=== PATIENT | female | born 1970 ===

== ENCOUNTER 2020-11-09 11:17 | Outpatient (CLI) | payer OTHER ==
--- NOTE | 2020-11-09 12:18 | Ultrasound Report ---
PROCEDURE: Abdomen Complete INDICATIONS: HEPATITIS B TECHNIQUE: Real-time scanning was performed of the abdominal and retroperitoneal organs, with image documentatio n. COMPARISON: None. FINDINGS: Liver: Liver is normal in size and demonstrates a mildly coarsened echotexture. A cyst can be seen o n the right inferiorly measuring up to 7 mm. Gallbladder: No gallstones or significant sludge can be seen. The gallbladder wall does not appear th ickened. There is no specific pericholecystic fluid. The sonographic Oconnor's sign is negative. Biliary ducts: Intrahepatic bile ducts are non-dilated. Extrahepatic bile duct caliber measures 4 m m. Normal is 6-7 mm or less in diameter, or 10 mm or less post-cholecystectomy. Pancreas: Visualized portions of the pancreas are sonographically normal. Spleen: Spleen is normal in size and homogeneous in echotexture. Kidneys: Kidneys are normal in size and echotexture. Right kidney measures 10.4 cm long; left kidne y measures 11.5 cm long. No hydronephrosis or nephrolithiasis. No solid masses. Aorta: Visualized aorta is normal in caliber at less than 3 cm. Iliacs: Proximal common iliac arteries are normal in caliber at less than 2.5 cm. IVC: Intrahepatic inferior vena cava is patent. Miscellaneous: No free abdominal fluid. IMPRESSION: Study within normal limits, with incidental note made of a 7 mm right liver cyst. Reviewed by: Branden Pierson MD on 11/09/2020 11:17 AM MARVA Approved by: Branden Pierson MD on 11/09/2020 11:17 AM AKMICHAEL Station ID: [id number]
== END 2020-11-09 11:18 | disposition home or self-care (01) ==
LOC: DI 11:17
PROVIDERS: ATTEND Physician Assistant
DX: B19.10 Unspecified viral hepatitis B without hepatic coma (principal)

== ENCOUNTER 2021-06-04 07:21 | Outpatient (CLI) | payer OTHER ==
--- NOTE | 2021-06-04 16:33 | Ultrasound Report ---
PROCEDURE: Abdomen Limited INDICATIONS: HEPATITIS B TECHNIQUE: Real-time scanning was performed of the abdominal and retroperitoneal organs, with image documentatio n. COMPARISON: Abdomen ultrasound 11/09/2020. FINDINGS: Liver: Liver is normal in size and heterogeneous in echotexture. Focus of decreased echogenicity is noted within the right lobe measuring 7 mm suggestive of simple cyst, unchanged Gallbladder: M trace no stones. Wall thickness is within normal limits measuring 1.2 mm. Biliary ducts: Intrahepatic bile ducts are non-dilated. Extrahepatic bile duct caliber measures 4.7 mm. Normal is 6-7 mm or less in diameter, or 10 mm or less post-cholecystectomy. Pancreas: Visualized portions of the pancreas are sonographically normal. Kidneys: Kidneys are normal in size and echotexture. Right kidney measures 10.6 cm long No hydrone phrosis or nephrolithiasis. No solid masses. IMPRESSION: Coarsened appearance of the liver with simple cyst. Otherwise, unremarkable. Reviewed by: Margarita Brady MD on 06/04/2021 4:32 PM PST Approved by: Margarita Brady MD on 06/04/2021 4:32 PM PST Station ID: [id number]
== END 2021-06-04 07:22 | disposition home or self-care (01) ==
LOC: DI 07:21
PROVIDERS: ATTEND Physician Assistant
DX: K76.89 Other specified diseases of liver (principal); B19.10 Unspecified viral hepatitis B without hepatic coma

== ENCOUNTER 2022-01-04 13:21 | Outpatient (CLI) | payer OTHER ==
--- NOTE | 2022-01-14 08:59 | Mammography Report ---
BILATERAL DIGITAL SCREENING MAMMOGRAM 3D/2D: 01/04/2022 CLINICAL: Routine screening. Comparison is made to exams dated: 11/07/2020 mammogram - [facility], 09/15/2017 mammogram - [facility], [place], and 04/28/2015 mammogram - [facility]. The tissue of both breasts is heteroge neously dense. This may lower the sensitivity of mammography. No significant masses, calcifications, or other findings are seen in either breast. There has been no significant interval change. IMPRESSION: NEGATIVE There is no mammographic evidence of malignancy. A 1 year screening mammogram is recommended. Based on the Tyrer Cuzick model (a risk assessment model) the patients lifetime risk is 12.2% and he r 10 year risk is 3.2%. According to the ACR, ACS, and NCCN guidelines, an annual breast MRI exam marina ng with mammogram is recommended if the patients lifetime risk is 20% or greater. This exam was interpreted at Station ID: [id number]. NOTE: For mammograms, a report in lay terms will be sent to the patient. Approximately 15% of breast malignancies will not be visualized mammographically. In the management of a palpable breast mass, a negative mammogram must not discourage biopsy of a clinically suspicious lesion. Electronically Signed By: Nicola Pedroza acr/penrad:01/13/2022 12:06:32 ACR BI-RADS Category 1: Negative 3341F PARENCHYMAL PATTERN: (D) - The breast(s) demonstrate(s) heterogeneously dense fibroglandular parsaqiby ma. BI-RADS CATEGORY: (1) - 1 RECOMMENDATION: (ANNUAL) - Recommend routine annual screening mammography. [id number] 1 year screening LATERALITY: (B)
== END 2022-01-04 13:22 | disposition home or self-care (01) ==
LOC: DI.N 13:21
PROVIDERS: ATTEND Physician Assistant
DX: Z12.31 Encounter for screening mammogram for malignant neoplasm of breast (principal)

== ENCOUNTER 2022-01-22 11:13 | Outpatient (CLI) | payer OTHER ==
--- NOTE | 2022-01-22 20:52 | Ultrasound Report ---
PROCEDURE: Abdomen Limited INDICATIONS: HEPATITIS B TECHNIQUE: Real-time focused scanning was performed of the abdomen, with image documentation. COMPARISON: None FINDINGS: The liver measures 12.5 cm. Hepatic echotexture is heterogenous. A previously seen right hepatic cyst is not visualized. Main portal vein flow is hepatopedal. Gallbladder is within normal limits. No wall thickening or pericholecystic fluid. The biliary tree is within normal limits. Common hepatic duct measures 1.9 mm. Common bile duct measu res 2.9 mm. Pancreas is not well-seen due to overlying bowel gas. Kidneys: The right kidney measures 9.2 cm in length. Cortical thickness is 1.0 cm. No solid or cystic masses. IMPRESSION: *Normal renal ultrasound. *No liver masses. Reviewed by: Nicola Pedroza on 01/22/2022 7:51 PM MARVA Approved by: Nicola Pedroza on 01/22/2022 7:51 PM MARVA Station ID: [id number]
== END 2022-01-22 11:14 | disposition home or self-care (01) ==
LOC: DI 11:13
PROVIDERS: ATTEND Physician Assistant
DX: B19.10 Unspecified viral hepatitis B without hepatic coma (principal)

== ENCOUNTER 2022-08-25 07:11 | Outpatient (CLI) | payer OTHER ==
--- NOTE | 2022-08-25 10:06 | Ultrasound Report ---
PROCEDURE: Abdomen Limited INDICATIONS: HEPATITIS TECHNIQUE: Real-time focused scanning was performed of the abdomen, with image documentation. COMPARISON: [id number] FINDINGS: Liver measures 12 to 13 cm. Right lobe hepatic cyst measuring up to 11 mm. No suspicious s olid lesion identified. Echotexture is slightly increased. Gallbladder is within normal limits. No pathologic biliary ductal dilation. Pancreatic head is unrema rkable. Right kidney measures 10.4 cm. Superior pole right renal cyst measuring 6 mm is present. IMPRESSION: No suspicious liver lesion. Right lobe hepatic cyst is present. Slightly echogenic hepatic texture co mpared to the renal cortex, likely representing chronic fibrofatty liver disease. Consider continued HCC surveillance in the setting of hepatitis. Reviewed by: Thierry Juares MD on 08/25/2022 10:05 AM [facility] Approved by: Thierry Juares MD on 08/25/2022 10:05 AM PST Station ID: [id number]
== END 2022-08-25 07:12 | disposition home or self-care (01) ==
LOC: DI 07:11
PROVIDERS: ATTEND Internal Medicine Gastroenterology
DX: K75.9 Inflammatory liver disease, unspecified (principal); K76.89 Other specified diseases of liver

== ENCOUNTER 2023-04-14 08:59 | Outpatient (CLI) | payer OTHER ==
--- NOTE | 2023-04-14 10:45 | Ultrasound Report ---
PROCEDURE: Abdomen Limited INDICATIONS: CHRONIC VIRAL HEP B TECHNIQUE: Real-time focused scanning was performed of the abdomen, with image documentation. COMPARISONS: Ultrasound 08/25/2022. FINDINGS: Liver: The liver is increased in echogenicity. There is a right hepatic cyst measuring 9 mm, similar to prior. The liver is normal in size measuring 14.7 cm. Gallbladder: Unremarkable. Biliary ducts: Intrahepatic bile ducts are non-dilated. Extrahepatic bile duct caliber measures 5.1 mm. Normal is 6-7 mm or less in diameter, or 10 mm or less post-cholecystectomy. Pancreas: Visualized portions of the pancreas are sonographically normal. Right kidney: Normal in size and echotexture. Right kidney measures 10.1 cm long. No hydronephrosis or nephrolithiasis. No solid masses. No complex renal cystic lesions which require follow-up. IMPRESSION: No suspicious liver lesions. Mild increased echogenicity of the liver, likely representing chronic fi brofatty liver disease. Reviewed by: Nhan Damon MD on 04/14/2023 10:44 AM PDT Approved by: Nhan Damon MD on 04/14/2023 10:44 AM PDT Station ID: [id number]
== END 2023-04-14 09:00 | disposition home or self-care (01) ==
LOC: DI 08:59
PROVIDERS: ATTEND Nurse Practitioner
DX: B18.1 Chronic viral hepatitis B without delta-agent (principal)

== ENCOUNTER 2023-09-05 06:57 | Outpatient (CLI) | payer OTHER ==
--- NOTE | 2023-09-05 09:01 | Ultrasound Report ---
PROCEDURE: Abdomen Limited INDICATIONS: HEPATITIS TECHNIQUE: Real-time focused scanning was performed of the abdomen, with image documentation. COMPARISONS: None. FINDINGS: Liver: Liver is normal in size and homogeneous in echotexture. Liver parenchyma is diffusely echoge tru. Right hepatic lobe hypoechoic lesion with no internal vascularity measuring 0.6 x 0.5 x 0.8 cm w hich is too small to characterize. Main portal vein is patent with hepatopedal flow. Gallbladder: Unremarkable. Biliary ducts: Intrahepatic bile ducts are non-dilated. Extrahepatic bile duct caliber measures 6.1 mm. Normal is 6-7 mm or less in diameter, or 10 mm or less post-cholecystectomy. Pancreas: Visualized portions of the pancreas are sonographically normal. Right kidney: Normal in size and echotexture. Right kidney measures 10.1 cm long. No hydronephrosis or nephrolithiasis. No solid masses. No complex renal cystic lesions which require follow-up. IMPRESSION: 1.Liver parenchyma is diffusely echogenic which may be seen in the setting of parenchymal disease suc h as steatosis. 2.Main portal vein is patent with hepatopedal flow. 3.Gallbladder is unremarkable. Reviewed by: Ele Castillo MD on 09/05/2023 9:00 AM PST Approved by: Ele Castillo MD on 09/05/2023 9:00 AM PST Station ID: [id number]
== END 2023-09-05 06:58 | disposition home or self-care (01) ==
LOC: DI 06:57
PROVIDERS: ATTEND Nurse Practitioner
DX: B19.10 Unspecified viral hepatitis B without hepatic coma (principal)

== ENCOUNTER 2024-04-04 08:43 | Outpatient (CLI) | payer OTHER ==
--- NOTE | 2024-04-04 15:32 | Mammography Report ---
BILATERAL DIGITAL SCREENING MAMMOGRAM 3D/2D: 04/04/2024 CLINICAL: Routine screening. Comparison is made to exams dated: 01/04/2022 mammogram, 04/07/2023 mammogram - [facility], 11/07/2020 mammogram - [facility], 09/29/2018 mammogram, 09/15/2017 mammogram - [facility], and 04/28/2015 mammogram - [facility]. There are scattered areas of fibroglandular density (category b / 25%-50% glandular tissue). There is a new irregular high density asymmetry in the left breast at 2 o'clock posterior depth. No other significant masses, calcifications, or other findings are seen in either breast. IMPRESSION: INCOMPLETE: NEED ADDITIONAL IMAGING EVALUATION The new irregular high density asymmetry in the left breast is indeterminate. Additional views with possible ultrasound are recommended. Based on the Tyrer Cuzick model (a risk assessment model) the patient's lifetime risk is 8.6% and her 10 year risk is 2.5%. According to the ACR, ACS, and NCCN guidelines, an annual breast MRI exam gabriel g with mammogram is recommended if the patient's lifetime risk is 20% or greater. This exam was interpreted at Station ID: [id number]. NOTE: For mammograms, a report in lay terms will be sent to the patient. Approximately 15% of breast malignancies will not be visualized mammographically. In the management of a palpable breast mass, a negative mammogram must not discourage biopsy of a clinically suspicious lesion. Electronically Signed By: Margarette decker/jeovanny:04/04/2024 14:18:42 ACR BI-RADS Category 0: Incomplete: Need Additional Imaging Evaluation 3340F PARENCHYMAL PATTERN: (A) - The breast(s) demonstrate(s) scattered fibroglandular densities. BI-RADS CATEGORY: (0) - 0 Mammo and [place] [id number] Immediate follow-up LATERALITY: (B)
== END 2024-04-04 08:44 | disposition home or self-care (01) ==
LOC: DI 08:43
PROVIDERS: ATTEND Physician Assistant
DX: Z12.31 Encounter for screening mammogram for malignant neoplasm of breast (principal); R92.323 Mammographic fibroglandular density, bilateral breasts; R92.8 Other abnormal and inconclusive findings on diagnostic imaging of breast